=== PATIENT | female | born 1965 | race Caucasian/White ===

== ENCOUNTER → 2018-08-08 | Outpatient (CLI) | payer BC ==
--- NOTE | 2018-08-09 13:36 | MM ---
Reason for exam: screening (asymptomatic). Last mammogram was performed 1 year ago. History: Family history of premenopausal breast cancer in maternal aunt at age 30, breast cancer in sister at age 53, and premenopausal breast cancer in maternal aunt at age 50. Excisional biopsy of the right breast, 2005. Took hormonal contraceptives for 6 years beginning at age 24. Physical Findings: A clinical breast exam by your physician is recommended on an annual basis and results should be correlated with mammographic findings. MG 3D Screening Mammo W/Cad Bilateral CC and MLO view(s) were taken. Prior study comparison: August 07, 2017, bilateral MG 3d screening mammo w/cad. July 15, 2016, bilateral MG screening mammo w CAD. The breast tissue is heterogeneously dense. This may lower the sensitivity of mammography. Finding: There are typically benign round, regional calcifications in the upper outer quadrant of the right breast. Previous mammotome biopsy in the left breast. There is no discrete abnormality. ASSESSMENT: Benign, BI-RAD 2 RECOMMENDATION: Routine screening mammogram of both breasts in 1 year.
== END | disposition home or self-care (01) ==
LOC: RADMAMWWP 08:32
PROVIDERS: ATTEND Family Medicine
DX: Z12.31 Encounter for screening mammogram for malignant neoplasm of breast (principal)
CPT/HCPCS: 77063; 77067

== ENCOUNTER → 2019-08-11 | Outpatient (CLI) | payer BC ==
--- NOTE | 2019-08-11 11:55 | MM ---
Reason for exam: screening (asymptomatic). Last mammogram was performed 1 year ago. History: Family history of premenopausal breast cancer in maternal aunt at age 30, breast cancer in sister at age 53, and premenopausal breast cancer in maternal aunt at age 50. Excisional biopsy of the right breast, 2005. Took hormonal contraceptives for 6 years beginning at age 24. Physical Findings: A clinical breast exam by your physician is recommended on an annual basis and results should be correlated with mammographic findings. MG Screening Mammo w CAD Bilateral CC and MLO view(s) were taken. Prior study comparison: August 08, 2018, bilateral MG 3d screening mammo w/cad. August 07, 2017, bilateral MG 3d screening mammo w/cad. The breast tissue is heterogeneously dense. This may lower the sensitivity of mammography. There are benign appearing round calcifications bilaterally. There is no discrete abnormality. Asymmetric breast tissue right upper inner quadrant, stable. ASSESSMENT: Benign, BI-RAD 2 RECOMMENDATION: Routine screening mammogram of both breasts in 1 year.
== END | disposition home or self-care (01) ==
LOC: RADMAMWWP 09:35
PROVIDERS: ATTEND Family Medicine
DX: Z12.31 Encounter for screening mammogram for malignant neoplasm of breast (principal)
CPT/HCPCS: 77067

== ENCOUNTER → 2021-03-03 | Outpatient (CLI) | payer BC ==
--- NOTE | 2021-03-04 11:36 | MM ---
Reason for exam: screening (asymptomatic). Last mammogram was performed 1 year and 7 months ago. History: Family history of premenopausal breast cancer in maternal aunt at age 30, breast cancer in sister at age 53, and premenopausal breast cancer in maternal aunt at age 50. Excisional biopsy of the right breast, 2005. Took hormonal contraceptives for 6 years beginning at age 24. Physical Findings: A clinical breast exam by your physician is recommended on an annual basis and results should be correlated with mammographic findings. MG 3D Screening Mammo W/Cad Bilateral CC and MLO view(s) were taken. Prior study comparison: August 11, 2019, bilateral MG screening mammo w CAD. August 08, 2018, bilateral MG 3d screening mammo w/cad. The breast tissue is heterogeneously dense. This may lower the sensitivity of mammography. No significant changes when compared with prior studies. ASSESSMENT: Benign, BI-RAD 2 RECOMMENDATION: Routine screening mammogram of both breasts in 1 year.
== END | disposition home or self-care (01) ==
LOC: RADMAMWWP 14:59
PROVIDERS: ATTEND Obstetrics & Gynecology
DX: Z12.31 Encounter for screening mammogram for malignant neoplasm of breast (principal); Z80.3 Family history of malignant neoplasm of breast; Z78.0 Asymptomatic menopausal state
CPT/HCPCS: 77063; 77067

== ENCOUNTER → 2022-04-12 | Outpatient (CLI) | payer BC ==
--- NOTE | 2022-04-12 15:58 | BD ---
EXAMINATION TYPE: Axial Bone Density DATE OF EXAM: 04/12/2022 COMPARISON: FIRST DEXA AT [facility] CLINICAL HISTORY: 56 years year old Female. ICD-10 CODE: N95.1 post menopausal Height: 62.5IN Weight: 177 FRAX RISK QUESTIONS: Secondary Osteoporosis: RISK FACTORS HISTORY OF: Family History of Osteoporosis: UNKNOWN Active: YES Postmenopausal woman: YES Take estrogen and/or progesterone medications: CONTROL A LONG TIME AGO How lon YEARS MEDICATIONS: Thyroid Medications: Which medication: SYNTHROID How Lon YEARS Additional Medications: BP MEDS, ALLERGY MEDS Additional History: EXAM MEASUREMENTS: Bone mineral densitometry was performed using the [employer] System. Bone mineral density as measured about the Lumbar spine is: ----- L1-L4(G/cm2): 1.370 T Score Values are as follows: ----- L1: 1.6 ----- L2: 1.3 ----- L3: 1.5 ----- L4: 1.7 ----- L1-L4: 1.6 FIRST DEXA AT [facility] Bone mineral density about the R hip (g/cm2): 1.057 Bone mineral density about the L hip (g/cm2): 1.213 T Score values are as follows: -----R Neck: -0.2 -----L Neck: 0.7 -----R Total: 0.4 -----L Total: 1.6 FRAX%s: The graph provided illustrates a 5.3% chance for a major osteoporotic fx and a 0.1% chance fo r the hips probability for fx in 10 years time. IMPRESSION: Normal (Values between +1 and -1 indicate normal bone mass). Consider repeating this study in 5 year s or sooner if there is some new clinical indication. NOTE: T-SCORE=SD OF THE YOUNG ADULT MEAN.
--- NOTE | 2022-04-13 08:22 | MM ---
Reason for Exam: Screening (asymptomatic). Last mammogram was performed 1 year(s) and 1 month(s) ago. Patient History: Menarche at age 14. First Full-Term at age 24. Postmenopausal. Hormonal Contraceptives for 6 years from age 24 until age 30. 2006, Excisional Biopsy on the Right side. Maternal aunt had breast cancer, age 30. Maternal aunt had breast cancer, age 50. Sister had breast cancer, age 53. Risk Values: Faby 5 year model risk: 2.5%. NCI Lifetime model risk: 15.9%. Prior Study Comparison: 08/08/2018 Bilateral Screening Mammogram, [facility]. 08/11/2019 Bilateral Screening Mammogram, [facility]. 03/03/2021 Bilateral Screening Mammogram, [facility]. Tissue Density: The breast tissue is heterogeneously dense. This may lower the sensitivity of mammography. Findings: Analyzed By CAD. There is no suspicious group of microcalcifications or new suspicious mass in either breast. Benign appearing round calcifications bilaterally. No significant change from prior exams. Overall Assessment: Benign, BI-RAD 2 Management: Screening Mammogram of both breasts in 1 year. A clinical breast exam by your physician is recommended on an annual basis and results should be correlated with mammographic findings. Electronically signed and approved by: Arben Beaver D.O.
== END | disposition home or self-care (01) ==
LOC: RADMAMWWP 14:28
PROVIDERS: ATTEND Obstetrics & Gynecology
DX: Z12.31 Encounter for screening mammogram for malignant neoplasm of breast (principal); Z78.0 Asymptomatic menopausal state; Z80.3 Family history of malignant neoplasm of breast
CPT/HCPCS: 77063; 77067; 77080

== ENCOUNTER → 2023-06-12 | Outpatient (CLI) | payer OTHER ==
--- NOTE | 2023-06-13 07:37 | MM ---
Reason for Exam: Screening (asymptomatic). Last mammogram was performed 1 year(s) and 2 month(s) ago. Patient History: Menarche at age 14. First Full-Term at age 24. Postmenopausal. Hormonal Contraceptives for 6 years from age 24 until age 30. 2006, Excisional Biopsy on the Right side. Maternal aunt had breast cancer, age 30. Maternal aunt had breast cancer, age 50. Sister had breast cancer, age 53. Risk Values: Faby 5 year model risk: 2.6%. NCI Lifetime model risk: 15.5%. Prior Study Comparison: 08/11/2019 Bilateral Screening Mammogram, [facility]. 03/03/2021 Bilateral Screening Mammogram, [facility]. 04/12/2022 Bilateral MG 3D screening mammo w/cad, [facility]. Tissue Density: The breast tissue is heterogeneously dense. This may lower the sensitivity of mammography. Findings: Analyzed By CAD. There is no suspicious group of microcalcifications or new suspicious mass in either breast. Benign calcifications within both breasts. Overall Assessment: Benign, BI-RAD 2 Management: Screening Mammogram of both breasts in 1 year. A clinical breast exam by your physician is recommended on an annual basis and results should be correlated with mammographic findings. Note on Faby scores and lifetime risk: 1. A Faby score greater than 3% is considered moderate risk. If this is the case, consider specialist referral to assess eligibility for a risk reducing agent. If overall lifetime risk for the development of breast cancer is 20% or higher, the patient may qualify for future screening with alternating mammogram and breast MRI. Electronically signed and approved by: Arben Beaver D.O.
== END | disposition home or self-care (01) ==
LOC: RADMAMWWP 07:06
PROVIDERS: ATTEND Obstetrics & Gynecology
DX: Z12.31 Encounter for screening mammogram for malignant neoplasm of breast (principal); Z78.0 Asymptomatic menopausal state; Z80.3 Family history of malignant neoplasm of breast
CPT/HCPCS: 77063; 77067

== ENCOUNTER → 2024-12-25 | Outpatient (CLI) | payer OTHER ==
--- NOTE | 2024-12-25 08:57 | MM ---
Reason for Exam: Screening (asymptomatic). Last mammogram was performed 1 year(s) and 7 month(s) ago. Patient History: Menarche at age 14. First Full-Term at age 24. Postmenopausal. Hormonal Contraceptives for 6 years from age 24 until age 30. 2006, Excisional Biopsy on the Right side. Maternal aunt had breast cancer, age 30. Maternal aunt had breast cancer, age 50. Sister had breast cancer, age 53. Risk Values: Faby 5 year model risk: 2.9%. NCI Lifetime model risk: 14.9%. Prior Study Comparison: 03/03/2021 Bilateral Screening Mammogram, [facility]. 04/12/2022 Bilateral MG 3D screening mammo w/cad, [facility]. 06/12/2023 Bilateral MG 3D screening mammo w/cad, [facility]. Tissue Density: The breasts are heterogeneously dense, which may obscure small masses. Findings: Analyzed By CAD. A dystrophic calcification posteriorly in the left breast is redemonstrated. There is no suspicious group of microcalcifications or new suspicious mass in either breast. Overall Assessment: Benign, BI-RAD 2 Management: Screening Mammogram of both breasts in 1 year. . Patient should continue monthly self-breast exams. A clinical breast exam by your physician is recommended on an annual basis. This exam should not preclude additional follow-up of suspicious palpable abnormalities. Note on Faby scores and lifetime risk: 1. A Faby score greater than 3% is considered moderate risk. If this is the case, consider specialist referral to assess eligibility for a risk reducing agent. 2. If overall lifetime risk for the development of breast cancer is 20% or higher, the patient may qualify for future screening with alternating mammogram and breast MRI. [facility], , 12/25/2024 8:54 AM. Electronically signed and approved by: Gregor Edmond M.D.
== END | disposition home or self-care (01) ==
LOC: RADMAMWWP 08:32
PROVIDERS: ATTEND Family Medicine
DX: Z12.31 Encounter for screening mammogram for malignant neoplasm of breast (principal); R92.333 Mammographic heterogeneous density, bilateral breasts; Z78.0 Asymptomatic menopausal state; Z80.3 Family history of malignant neoplasm of breast; Z92.0 Personal history of contraception
CPT/HCPCS: 77063; 77067